=== PATIENT | female | born 1970 | race Caucasian/White ===

== ENCOUNTER 2025-02-24 11:46 | Emergency (ER) | payer MEDICAID, SELFPAY ==
[2025-02-24 11:58] VITALS: BP 140/94; PULSE 92; RESP 24; TEMP 36.6; O2SAT 96; BMI 43.0
[2025-02-24] MEDS: CLINDAMYCIN PHOS INJ 150 MG/ML VIAL 6 ML 600 MG IM (12:29)
[2025-02-24] MEDS: DEXAMETHASONE SOD PHOS INJ 10 MG/ML VIAL PO (12:31)
--- NOTE | 2025-02-24 12:41 | EDNOTE_ITS ---
<Statement entered by Sara Garcia MD - 02/24/25 16:59> As co-signing physician, I was present and available for consult prn. I concur with the plan and care as documented by the midlevel provider. ED Skin Abcess FB-RME/HPI General Chief complaint: Shortness of Breath/Dyspnea Stated complaint: BITE TO BACK, SOB W/ HX ASTHMA Time Seen by Provider: 02/24/25 11:54 Source: patient Arrival date/time: 02/24/25 11:46 54-year-old female with no known medical presents emergency room with a chief complaint of an insect bite to the upper back and shortness of breath x 2 days Mode of arrival: ambulatory Limitations: no limitations Related Data Home Medications ?Medication ?Instructions ?Recorded ?Confirmed albuterol sulfate 2.5 mg/3 mL 2.5 mg continuous nebuli zation QDAY 04/22/23 04/23/23 (0.083 %) solution for nebulization albuterol sulfate 90 mcg/actuation 2 puff inhalation Q 4HR PRN Wheezing 04/22/23 04/23/23 aerosol inhaler azelastine 137 mcg (0.1 %) nasal 1 spray intranasal BI D 04/22/23 04/23/23 spray fluticasone propionate 50 1 spray intranasal DAILY 04/23/23 mcg/actuation nasal spray,suspension omeprazole 20 mg capsule,delayed 20 mg PO DAILY 04/23/23 release umeclidinium 62.5 mcg-vilanterol 1 inh inhalation QDAY 04/22/23 04/23/23 25 mcg/actuation powdr for inhalation (Anoro Ellipta) Previous Rx's ?Medication ?Instructions ?Recorded clindamycin HCl 300 mg capsule 300 mg PO TID #21 caps 09/10/23 sulfamethoxazole 800 1 tab PO BID #14 tabs mg-trimethoprim 160 mg tablet (Bactrim DS) Allergies Allergy/AdvReac Type Severity Reaction Status Date / Time iodine Allergy Severe Vomiting Verified 02/24/25 11:49 Review of Systems Review of Systems Systems Reviewed: All systems reviewed, normal except as documented Constitutional Constitutional: Reports system reviewed and no additional complaints, except as documented, Denies fatigue, Denies fever(s), Denies headache(s) and Denies weakness Eyes Eyes: Reports system reviewed and no additional complaints, except as documented, Denies blurry vision and Denies change in vision ENT Ears, Nose, Mouth, and Throat: Reports system reviewed and no additional complaints, except as documented, Denies otalgia, Denies headache(s), Denies nasal congestion, Denies throat swelling and Denies vertigo Cardiovascular Cardiovascular: Reports system reviewed and no additional complaints, except as documented, Denies chest pain, Denies dyspnea and Denies dyspnea on exertion Respiratory Respiratory: Reports system reviewed and no additional complaints, except as documented, Denies chest congestion, Denies cough, Denies dyspnea, Denies dyspnea on exertion and Denies wheezing Gastrointestinal Gastrointestinal: Reports system reviewed and no additional complaints, except as documented, Denies abdominal pain, Denies cramping, Denies nausea and Denies vomiting Genitourinary Genitourinary: Reports system reviewed and no additional complaints, except as documented Musculoskeletal Musculoskeletal: Reports system reviewed and no additional complaints, except as documented and Denies back pain Integumentary/Breasts Skin/Breast: Reports system reviewed and no additional complaints, except as documented, Reports pruritus, Reports rash and Denies wounds Neurologic Neurologic: Reports system reviewed and no additional complaints, except as documented, Denies confusion, Denies headache(s), Denies lack of coordination, Denies vertigo and Denies weakness Psychiatric Psychiatric: Reports system reviewed and no additional complaints, except as documented, Denies anxiety, Denies confusion, Denies depression, Denies paranoia, Denies suicidal ideation and Denies tactile hallucinations Endocrine Endocrine: Reports system reviewed and no additional complaints, except as documented and Denies fatigue Hematologic/Lymphatic Hematologic/Lymphatic: Reports system reviewed and no additional complaints, except as documented and Denies lymphadenopathy Allergic/Immunologic Allergic/Immunologic: Reports system reviewed and no additional complaints, except as documented, Denies throat swelling, Denies urticaria and Denies wheezing Past Medical History Past Medical History NEUROLOGIC: Negative Neurological Disorders, Cerebrovascular Accident, Brain Tumor, Seizures, Epilepsy, Migraine or Head Trauma CARDIAC: Positive Cardiac Disorders, Atrial Fibrillation (per patient history of afib), Edema, Hypertension and Varicose Veins; Negative Hypercholesterolemia or Congestive Heart Failure RESPIRATORY: Positive Chronic Obstructive Pulmonary Disease (COPD), Asthma and Pulmonary Embolism GASTROINTESTINAL: Positive Gastrointestinal Disorders (heartburn, hep c), Hepatitis (hep c), Cirrhosis, Gall Bladder Disease and Obesity GENITOURINARY: Negative Genitourinary Disorders, Renal Disease or Kidney Stones REPRODUCTIVE: Positive Breast Cancer (left breast) and Previous Pregnancies; Negative Endometriosis, Genital Herpes, Gonorrhea, Pelvic Inflammatory Disease, Syphilis or Uterine Prolapse MUSCULOSKELETAL: Positive Arthritis and Fractures ENT: Negative Head Trauma ENDOCRINE: Negative Endocrine Disorders, Diabetes Mellitus Type 1 or Diabetes Mellitus Type 2 (pre-diabetic) HEMATOLOGIC: Positive Blood Disorders and Clotting Problems; Negative Anemia, Leukemia, Hemophilia, Thalassemia or Sickle Cell Disease PSYCHO/SOCIAL: Positive Recreational Drug Use, Bipolar Disorder and Depression; Negative Depression or Post Traumatic Stress Disorder OTHER HISTORY: Positive Chicken Pox, Cancer and Breast Cancer (left breast); Negative Hospitalization, Autoimmune Disease, Falls, Blood Transfusions, Blood Transfusion Reaction, Anesthesia Reactions, Organ Transplant, Chemotherapy (hormone therapy), Radiation Therapy, Hyperbaric Therapy or MRSA Family History FAMILY HISTORY: Positive Family Respiratory Disorders (mother- copd asthma); Negative Family Cardiac Disorders, Family Surgery or Family Anesthesia Reaction Surgical History SURGICAL: Positive Tonsillectomy, Throat Surgery, Joint Replacement, Mastectomy, Lumpectomy, Hysterectomy, Tubal Ligation and Section; Negative Cardiac Surgery, Endocrine Surgery, Thyroidectomy, Abdominal Surgery, Neurologic Surgery or Organ Transplant Social History SMOKING STATUS: Light (< 1 pack/day) ED Exam General Limitations: Present no limitations General appearance: Present alert and in no apparent distress Head Head exam: Present atraumatic, normocephalic and normal inspection Expanded Head Exam Head exam physical: Present other; Absent laceration, abrasion, contusion, hematoma, raccoon eyes, Kaye's sign, tenderness of temporal artery, CSF rhinorrhea or CSF otorrhea Head image: 2 1. Erythemic, warm to the touch, area to the neck. At this time there is no abscess or any need for an incision and drainage. There is a small circular area that appears to be the bite tova. Eye Eye exam: Present normal appearance, PERRL and EOMI ENT ENT exam: Present normal exam, normal oropharynx and mucous membranes moist Neck Neck exam: Present normal inspection, full ROM and trachea midline Chest Chest inspection: Present normal inspection and symmetric chest wall rise Respiratory Respiratory exam: Present normal lung sounds bilaterally; Absent respiratory distress, wheezes, stridor, accessory muscle use or prolonged expiratory phase Cardiovascular Cardiovascular exam: Present regular rate, normal rhythm and normal heart sounds Abdominal Exam Abdominal exam: Present soft and normal bowel sounds Extremities Exam Extremities exam: Present normal inspection and full ROM Back Exam Back exam: Present normal inspection and full ROM Neurological Exam Neurological exam: Present alert, oriented X3 and CN II-XII intact Psychiatric Psychiatric exam: Present normal affect and normal mood Skin Skin exam: Present warm, dry, intact and normal color Course Quality Measures none Orders Category Date Time Status Clindamycin Vial [Cleocin vial] Med 02/24/25 12:09 Discontinued 600 mg IM X1 ONE Dexamethasone Inj [Decadron Inj] Med 02/24/25 12:09 Discontinued 10 mg PO X1 ONE Vital Signs Vital signs: Vital Signs Temperature 97.9 F 02/24/25 11:58 Pulse Rate 92 02/24/25 11:58 Respiratory Rate 24 H 02/24/25 11:58 Blood Pressure 140/94 H 02/24/25 11:58 Pulse Oximetry (%) 96 02/24/25 11:58 Oxygen Delivery Method Room Air 02/24/25 11:58 Skin / Abscess / Foreign Body MDM Narrative MDM Narrative:: 54-year-old female with no known medical presents emergency room with a chief complaint of an insect bite to the upper back and shortness of breath x 2 days Patient is hemodynamically stable and in no apparent distress Physical examination shows a 2 cm area of erythema as well as warmth to the neck area. At this time this wound does not need to be drained and there is no abscess. The findings are consistent with cellulitis possibly due to an insect bite. Antibiotics were sent to the patient's pharmacy. Patient is also complaining of shortness of breath with a history of asthma. Lung sounds are clear bilaterally O2 saturation is 96% on room air there is no tachypnea or tachycardia. Steroids were given Patient was discharged and educated to follow-up with primary care provider in the next 24 to 48 hours and return to the emergency room for any evidence of worsening signs or symptoms Patient data External records reviewed:: [facility] previous records Clinical information provided by:: patient Social determinants that could affect healthcare access:: none Patient has the following chronic illnesses:: Asthma How is presenting disease/condition affected by chronic disease/condition?: e xacerbated by Evaluation data The following diagnostics were reviewed and interpreted by me:: lab results and radiology exam(s) Lab and/or radiology exams considered but not ordered:: Labs and radiology exams considered and ordered Interpretation Summary: N/A Medications / Prescriptions Medications or Prescriptions considered but not ordered:: Medication given Medication administrations:: Medication Administration History Discontinued Medications Clindamycin Phosphate (Clindamycin Phos Inj 150 Mg/Ml Vial 6 Ml) 600 mg IM X1 ONE Stop: 02/24/25 12:10 Last Admin: 02/24/25 12:29 Dose: 600 mg Documented By: HILARY Dexamethasone Sodium Phosphate (Dexamethasone Sod Phos Inj 10 Mg/Ml Vial) 10 mg PO X1 ONE Stop: 02/24/25 12:10 Last Admin: 02/24/25 12:31 Dose: 10 mg Documented By: HILARY Medication given Consultations Consultation(s) initiated? (list below): No Diagnosis Skin/Abscess Differential Diagnosis: cellulitis, insect bites and contact dermatitis Most likely diagnosis given after review of the tests above:: Cellulitis Admission Indicated Admission indicated?: not indicated Admission Request Was there a request for admission?: No Disposition Plan Disposition Plan: Discharge Discharge Attestation Discharge Attestation: The patient and all family members were given an opportunity to ask questions and understood the discharge instructions. Discharge instructions specifically effects, indications for sooner follow up or return to the emergency department, and the expected course of current diagnosis. Patient condition: Stable Discharge Plan Plan Patient Disposition: HOME (Self Care) Discharge Disposition comment: Stable Prescriptions/Referrals Prescriptions/Med Rec: New sulfamethoxazole-trimethoprim [Bactrim DS] 800-160 mg tablet 1 tab PO BID Qty: 14 0RF No Action albuterol sulfate 2.5 mg /3 mL (0.083 %) solution for nebulization 2.5 mg continuous nebulization QDAY omeprazole 20 mg capsule,delayed release(DR/EC) 20 mg PO DAILY azelastine 137 mcg (0.1 %) aerosol,spray 1 spray INTRANASAL BID Patient Comments: SPRAY 2 SPRAYS INTO EACH NOSTRIL TWICE A DAY albuterol sulfate 90 mcg/actuation HFA aerosol inhaler 2 puff INHALATION Q4HR PRN (Reason: Wheezing) fluticasone propionate 50 mcg/actuation spray,suspension 1 spray INTRANASAL DAILY Patient Comments: SPRAY 1 SPRAY INTO EACH NOSTRIL TWICE A DAY Anoro Ellipta 62.5-25 mcg/actuation blister with device 1 inh INHALATION QDAY clindamycin HCl 300 mg capsule 300 mg PO TID Qty: 21 0RF Problem List Clinical Impression: Insect bite, Cellulitis Patient/Caregiver Discharge Instructions Education Materials: ED Animal Bite (General) Additional Instructions: Please follow-up with your primary care provider in the next 24 to 48 hours. Antibiotics are sent to your pharmacy please pick them up and take them as indicated. At this time you have some warmth to the area and very mild swelling. If your signs and symptoms get worse please return to the emergency room immediately Print Language: Kosovan Stand Alone Forms: Rylee Award Info., Work/School Release, Patient Portal Info Letter PA/RESIDENTIAL CARE FACILITY MANAGER Supervising Physician PA/IBETH Supervising Physician: Dr. GARCIA
== END 2025-02-24 13:20 | disposition home or self-care (01) ==
LOC: SERX 12:15
PROVIDERS: Emergency Provider Emergency Medicine; PCP Family Medicine
DX: S20.469A Insect bite (nonvenomous) of unspecified back wall of thorax, initial encounter (principal); L03.312 Cellulitis of back [any part except buttock and flank]; W57.XXXA Bitten or stung by nonvenomous insect and other nonvenomous arthropods, initial encounter
CPT/HCPCS: 96372; 99283; J0736; J1100